=== PATIENT | male | born 1965 | race Caucasian/White ===

== ENCOUNTER 2017-09-14 11:34 | Emergency (ER) | payer SELFPAY ==
[~2017-09-14] VITALS: Ht 185.4 cm; Wt 102.6 kg
[2017-09-14 11:35] VITALS: BP 132/89
== END 2017-09-14 12:08 | disposition left against medical advice (07) ==
LOC: ED 12:00
DX: Z53.21 Procedure and treatment not carried out due to patient leaving prior to being seen by health care provider (principal)